=== PATIENT | female | born 1990 | race Caucasian/White ===

== ENCOUNTER 2017-08-27 23:12 | Emergency (ER) | payer OTHER ==
[~2017-08-27] VITALS: Ht 162.6 cm; Wt 69.0 kg
[2017-08-27 23:18] VITALS: Ht 162.6 cm; Wt 69.0 kg
--- NOTE | 2017-08-27 23:28 | ERD ---
ER Documentation Chief Complaint Chief Complaint ST/fever since today HPI The patient is a 37-year-old female, presenting to the ER because of sore throat , subjective fever, general body pain, chills and for 1 day. She denies neck pain, chest pain, dyspnea, abdominal pain, vomiting, dysuria, diarrhea. She does not smoke, drinks socially Past medical history/surgical history: None ROS All systems reviewed and are negative except as per history of present illness. Medications Home Meds Active Scripts Ibuprofen* (Ibuprofen*) 600 Mg Tablet, 600 MG PO Q6, #20 TAB Prov:SAL WALL MD 08/27/17 Amoxicillin* (Amoxicillin*) 500 Mg Cap, 500 MG PO TID for 10 Days, CAP Prov:SAL WALL MD 08/27/17 Dextromethorphan Hb-Promethazine Hcl* (Promethazine DM* Syrup) 473 Ml Syrup, 10 ML PO Q6 Y for COUGH, #120 ML Prov:SAL WALL MD 08/27/17 Allergies Allergies: Coded Allergies: No Known Allergy (Unverified , 08/27/17) Physical Exam Vitals Vital Signs Date Time Temp Pulse Resp B/P Pulse Ox O2 Delivery O2 Flow Rate FiO2 08/27/17 23:18 99.2 99 20 133/85 100 Physical Exam Const: No acute distress. Head: Atraumatic. Eyes: Normal Conjunctiva. ENT: Normal External Ears, Nose and Mouth. Bilateral tympanic membranes are within normal limit. Tonsils edematous and erythematous Neck: Full range of motion. No meningismus. Resp: Clear to auscultation bilaterally. Cardio: Regular rate and rhythm. Abd: Soft, non distended, normal bowel sounds, non tender. Skin: No petechiae or rashes. Back: No midline or flank tenderness. Ext: No cyanosis, or edema. Neur: Awake and alert. No focal deficit Psych: Normal Mood and Affect. Procedures/MDM MEDICAL MAKING DECISION: The patient is a 37-year-old female, presenting with acute tonsillitis, acute viral syndrome. She is stable for outpatient follow-up The differential diagnoses considered include but are not limited to influenza, otitis media, pneumonia, cystitis Departure Diagnosis: Primary Impression: Viral syndrome Additional Impression: Tonsillitis Condition: Good Comments She was discharged with Phenergan DM, amoxicillin, Motrin The patient's blood pressure was elevated (>120/80) but appears stable without evidence of hypertension emergency or urgency. The patient was counseled about the risks of hypertension and urged to pursue outpatient monitoring and therapy within a week with their primary care physician. I discussed the findings with the patient. I advised the patient to follow-up with the primary physician in about 1-2 days, sooner if needed and return if any concern. Disclaimer: Inadvertent spelling and grammatical errors are likely due to EHR/ dictation software use and do not reflect on the overall quality of patient care. Also, please note that the electronic time recorded on this note does not necessarily reflect the actual time of the patient encounter. SAL WALL MD Aug 27, 2017 23:28
[2017-08-27] MEDS ORDERED: D-ME473S2 PO (23:41)
[2017-08-27] MEDS ORDERED: AMOX500C2 PO (23:41)
[2017-08-27] MEDS ORDERED: IBUP-1542 PO (23:42)
== END 2017-08-28 00:19 | disposition home or self-care (01) ==
LOC: FTE 23:12
DX: B34.9 Viral infection, unspecified (principal); J03.90 Acute tonsillitis, unspecified
CPT/HCPCS: 99284